=== PATIENT | male | born 1995 | race Caucasian/White ===

== ENCOUNTER 2024-03-31 13:00 | Emergency (ER) | payer OTHER ==
[~2024-03-31] VITALS: Ht 177.8 cm; Wt 72.6 kg
[2024-03-31 13:24] VITALS: BP 137/64; TEMP 98.7; O2SAT 100
== END 2024-03-31 13:55 | disposition home or self-care (01) ==
LOC: ER 13:01
DX: S93.491A Sprain of other ligament of right ankle, initial encounter (principal); Z60.2 Problems related to living alone; X37.1XXA Tornado, initial encounter; Y93.89 Activity, other specified; Y92.89 Other specified places as the place of occurrence of the external cause; Y99.8 Other external cause status
CPT/HCPCS: 73610-TC

== ENCOUNTER 2024-04-13 06:48 | Emergency (ER) | payer OTHER ==
[~2024-04-13] VITALS: Ht 177.8 cm; Wt 72.6 kg
[2024-04-13] MEDS ORDERED: LIDOCAINE 1% INJ 50 ML MDV IJ ONE (07:35)
[2024-04-13] MEDS ORDERED: HYDR-4303 PO (07:48)
[2024-04-13] MEDS ORDERED: HYDR-3972 PO ×2 (07:59→08:00)
[2024-04-13] MEDS: LIDOCAINE 1% INJ 50 ML MDV IJ ONE (08:04)
[2024-04-13 08:11] VITALS: BP 118/69; TEMP 98.4; O2SAT 98
== END 2024-04-13 08:12 | disposition home or self-care (01) ==
LOC: ER 06:49
DX: K08.89 Other specified disorders of teeth and supporting structures (principal); Z60.2 Problems related to living alone
CPT/HCPCS: 64400; 99284; J3490